=== PATIENT | female | born 1965 | race Caucasian/White ===

== ENCOUNTER 2021-01-06 11:07 | Emergency (ER) | payer MEDICARE, OTHER ==
[2021-01-06] MEDS ORDERED: NORCO 5-325 TA1 EACH PO (14:00)
== END 2021-01-06 14:22 | disposition home or self-care (01) ==
LOC: FER 11:07
DX: S82.61XA Displaced fracture of lateral malleolus of right fibula, initial encounter for closed fracture (principal); S92.251A Displaced fracture of navicular [scaphoid] of right foot, initial encounter for closed fracture; S86.911A Strain of unspecified muscle(s) and tendon(s) at lower leg level, right leg, initial encounter; J45.909 Unspecified asthma, uncomplicated; I10 Essential (primary) hypertension; F17.210 Nicotine dependence, cigarettes, uncomplicated; Z91.013 Allergy to seafood; W17.89XA Other fall from one level to another, initial encounter; X50.1XXA Overexertion from prolonged static or awkward postures, initial encounter; Y92.72 Chicken coop as the place of occurrence of the external cause
CPT/HCPCS: 73564; 73610